=== PATIENT | male | born 1975 | race Caucasian/White ===

== ENCOUNTER 2021-09-17 16:24 | Emergency (ER) | payer OTHER ==
[2021-09-17 17:51] LABS: BASOPHIL 0.7 % (0-2); EOSINOPHIL 2.1 % (0-5); HCT 41.4 % (42.0-52.0); LYMPHOCYTE 23.7 % (15-48); MCH 29.7 pg (25.0-31.0); MCHC 33.8 g/dL (32.0-36.0); MCV 87.7 fL (78.0-100.0); MONOCYTE 7.2 % (0-12); MPV 11.1 fL (6.0-9.5); NRBC 0; PLT 221 K/uL (150-400); RBC 4.72 M/uL (4.70-6.00)
[2021-09-17 18:04] LABS: ALBUMIN 4.1 g/dL (3.4-5.0); BILIRUBIN - TOTAL 0.2 mg/dL (0.2-1.0); BUN/CREAT RATIO (CALC) 9.7 RATIO; CREATININE 0.93 mg/dL (0.67-1.17); GLOBULIN (CALCULATION) 3.6 g/dL; TOTAL PROTEIN 7.7 g/dL (6.4-8.2)
[2021-09-17 19:07] LABS: BILIRUBIN NEGATIVE (NEGATIVE); BLOOD NEGATIVE Ery/uL (NEGATIVE); CLARITY CLEAR (CLEAR); COLOR YELLOW (YELLOW); GLUCOSE (U) NORMAL (NORMAL); LEUKOCYTES TRACE Leu/uL (NEGATIVE); NITRITE NEGATIVE (NEGATIVE); PROTEIN NEGATIVE (NEGATIVE); SPECIFIC GRAVITY 1.015 (1.001-1.030); UROBILINOGEN 0.2 mg/dL (0.2-1.0); pH 6.5 (5.0-9.0)
[2021-09-17 19:13] LABS: URINARY RBC RARE; URINARY WBC RARE
[2021-09-17 21:04] LABS: CORONAVIRUS 2019 SARS-COV-2 NEGATIVE (NEGATIVE); INFLUENZA A NAA NEGATIVE (NEGATIVE)
[2021-09-17] MEDS ORDERED: ANTIVERT25 MG PO (21:31)
== END 2021-09-17 21:46 | disposition home or self-care (01) ==
LOC: FER 16:24
PROVIDERS: Nurse Practitioner Family
DX: R07.89 Other chest pain (principal); R42 Dizziness and giddiness; F17.210 Nicotine dependence, cigarettes, uncomplicated; Z20.822 Contact with and (suspected) exposure to COVID-19
CPT/HCPCS: 36415; 70450; 71045; 80053; 81001; 84484; 85025; 85379; 93005; J7030; U0002